=== PATIENT | female | born 1985 | race African-American/Black ===

== ENCOUNTER 2016-09-08 13:17 | Emergency (ER) ==
[2016-09-08 13:56] LABS: MANUAL DIFF NEEDED? NO
[2016-09-08 14:10] LABS: BASO% 0.2 % (0.0-0.8); EOS# 0.02 X1000 (0.0-0.7); EOS% 0.4 % (0.0-10.0); HEMATOCRIT 40.1 % (37.0-47.0); HEMOGLOBIN 13.6 g/dL (12.0-16.0); LYMPH# 1.07 X1000 (1.2-3.4); LYMPH% 20.4 % (20.5-51.1); MCHC 33.9 g/dL (33-37); MCV 79.6 FL (81-99); MONO# 0.51 X1000 (0.11-0.59); MONO% 9.7 % (1.7-9.3); MPV 11.5 FL (7.4-10.4); NEUT% 69.3 % (42.2-75.2); PLT 154 X1000 (130-400); RBC 5.04 XMIL (4.2-5.4)
[2016-09-08 14:20] LABS: AGAP 15; ALBUMIN 3.9 g/dL (3.5-5.0); ALKALINE PHOSPHATASE 77 U/L (32-104); AMYLASE 65 U/L (20-200); BUN 10 mg/dL (8-22); CALCIUM 10.3 mg/dL (8.8-10.2); CHLORIDE 93 mmol/L (98-107); COSMO 280; GOT 20 U/L (10-30); GPT 19 U/L (10-36); LIPASE 19 U/L (13-60); POTASSIUM 4.5 mmol/L (3.5-5.1); SODIUM 133 mmol/L (136-145); TCO2 25 mmol/L (25-35); TOTAL BILIRUBIN 0.32 mg/dL (0.20-1.00); TOTAL PROTEIN 7.9 g/dL (6.3-8.3)
[2016-09-08 14:23] LABS: URINE CULTURE NEEDED? NO; URINE MICRO REVIEW NEEDED? NO; URINE SOURCE CLEAN CATCH
[2016-09-08 14:29] LABS: BILIRUBIN URINE NEGATIVE (NEGATIVE); BLOOD URINE NEGATIVE (NEGATIVE); COLOR STRAW; GLUCOSE URINE >1000 mg/dL (NEGATIVE); LEUKOCYTES URINE NEGATIVE (NEGATIVE); NITRITE URINE NEGATIVE (NEGATIVE); PH URINE 5.5; PROTEIN URINE NEGATIVE (NEGATIVE); SP GRAVITY URINE 1.019; TURBIDITY URINE CLEAR (CLEAR); UROBILINOGEN URINE NORMAL (NORMAL)
[2016-09-08 14:31] LABS: UR EPITHELIAL CELLS <10 /HPF (<10); URINE BACTERIA NEGATIVE /HPF; URINE RBC <10 /HPF (<10); URINE WBC <10 /HPF (<10)
--- NOTE | 2016-09-08 16:14 | PROVIDER DOCUMENTATION ---
HPI-General Adult - General Chief Complaint: Generalized Pain Stated Complaint: NAUSEA/HIGH BP/EYE COMPLAINT Time Seen by Provider: 09/08/16 16:08 Source: patient Allergies/Adverse Reactions: Patient Allergies Allergy/AdvReac Type Severity Reaction Status Date / Time No Known Allergies Allergy Verified 09/08/16 16:45 Home Medications: Home Medication List Medication Instructions Recorded Confirmed Last Taken Type Insulin Glargine [Lantus] 20 unit SUBQ QAM #1 insuln.pen 06/13/16 09/08/1606/13 Rx Insulin Glargine [Lantus] 20 unit SUBQ QHS #1 insuln.pen 06/13/16 09/08/1606/13 Rx Methimazole [Northyx] 20 mg PO QAM #90 tablet 06/13/16 09/08/16 1 Month Ago Rx Metoprolol [Lopressor] 50 mg PO BID #60 tablet 06/13/16 09/08/16 09/08/16 08:00 Rx Bisacodyl [Dulcolax] 10 mg [place] QHS #20 supp 08/03/16 09/08/16 Unknown Rx Cephalexin [Keflex] 500 mg PO BID #14 capsule 08/03/16 09/08/16 Unknown Rx Na Phos,M-B/Na Phos,Di-Ba [Fleet 133 ml NH HS PRN PRN #3 enema 08/03/16 Unknown Rx Enema] Polyethylene Glycol 3350 [Miralax] 255 gm PO DAILY #1 powder 08/03/16 09/08/16 Unknown Rx Clindamycin [Cleocin] 150 mg PO Q6HR #30 capsule 09/08/16 Unknown Rx Docusate Sodium [Colace] 100 mg PO BID PRN PRN #20 capsule 09/08/16 Unknown Rx Insulin Glargine [Lantus] 20 unit SUBQ QAM #1 insuln.pen 09/08/16 Unknown Rx Magnesium Citrate [Citrate of 300 ml PO ONCE #1 bottle 09/08/16 Unknown Rx Magnesia] - History of Present Illness -Gen Adult Nature of Presenting Problems: 31 y/o BF c/o back, head, groin pain, and R eye stye x 2-3 weeks. Pt states that she has been off of her medication x 2-3 weeks- insulin and methamazole. States she still is taking her BP medications. States she ran out of medications and has not had PCP or insurance for 4 years. States that she cannot pay for her medications. States today no N/V/D, but has had intermittent vomiting and diarrhea with dark stools. States polydipsia. Review of Systems - Adult - REVIEW OF SYSTEMS - ADULT Constitutional: reports: no symptoms reported. denies: chills, fever Eyes: reports: see HPI, eye pain. denies: blurred vision, double vision Ears, Nose, Mouth & Throat: reports: no symptoms reported. denies: ear pain, nose pain Cardiovascular: reports: no symptoms reported. denies: chest pain, palpitations Respiratory: reports: no symptoms reported. denies: cough, dyspnea on exertion , shortness of breath Gastrointestinal: reports: see HPI, abdominal pain, diarrhea, nausea, vomiting Genitourinary: reports: see HPI, frequency. denies: dysuria Musculoskeletal: reports: see HPI, back pain, muscle aches. denies: bone pain, neck pain Integumentary: reports: no symptoms reported. denies: nail changes, rash Neurological: reports: no symptoms reported. denies: numbness, paresthesia Psychiatric: reports: no symptoms reported Endocrine: reports: no symptoms reported. denies: cold intolerance, heat intolerance Hematologic/Lymphatic: reports: no symptoms reported Allergic/Immunologic: reports: no symptoms reported All Other Systems: Reviewed and Negative Past History - Adult - PAST MEDICAL HISTORY-ADULT Review of Records: reports: Nursing Assessment Review, Medications Reviewed Major Childhood Illnesses: reports: denies history Cardiovascular: reports: HTN Respiratory: reports: denies history Gastrointestinal: reports: denies history Obstetrical/Gynecological: reports: denies history LMP: 08/13/16 Genitourinary: reports: denies history Musculoskeletal: reports: denies history Neurological: reports: denies history Endocrine/Immune: reports: Diabetes (type 1), thyroid disorder (Graves disease) Other Conditions: reports: denies history - PRIOR SURGERIES/PROCEDURES Surgical/Procedure History: reports: BTL, , hernia repair (inguinal) - IMMUNIZATION STATUS Childhood Immunizations: See Nurse Assessment Flu Vaccine: See Nurse Assessment - FAMILY HISTORY Family History: reviewed, not pertinent - SOCIAL HISTORY Smoking: cigarettes, less than 1 pack/day Provider spent 3-5 mins advising pt. on dangers of tobacco.: Discussed manners to quit use, and f/u contacts for add'l counseling. Alcohol Use Frequency: never Physical Exam-General - PHYSICAL EXAM-ADULT Initial Vital Signs Reviewed: Yes - CONSTITUTIONAL General Appearance: alert, mild distress (tearful) - EYES Eyes: pink conjunctivae - HEAD, EARS, NOSE, MOUTH & THROAT HENMT: normocephalic/atraumatic, moist mucous membranes - NECK Neck: supple, normal inspection - RESPIRATORY Respiratory: lungs clear, normal breath sounds. negative: crackles, rales, rhonchi, stridor, wheezing - CARDIOVASCULAR Cardiovascular: regular rate, rhythm. negative: bradycardia, tachycardia - GASTROINTESTINAL (ABDOMEN) Abdominal Exam: normal bowel sounds, soft, tenderness (LLQ). negative: distended, guarding, rigid, rebound, McBurney's point tenderness, Dale's sign - MUSCULOSKELETAL Back Exam: no CVA tenderness Extremity: normal inspection. negative: abnormal NV exam - SKIN Integumentary: normal color, normal turgor, warm/dry - NEUROLOGIC Neurologic: negative: aphasia - PSYCHIATRIC Psych/Mental Status: normal mood/affect, normal thought content, normal thought process, oriented x 3 Progress - PLAN OF CARE/RESULTS Progress/Plan/Lab Results: Laboratory Tests 09/08/16 09/08/16 09/08/16 13:34 13:48 13:48 WBC RBC Hgb Hct MCV MCH MCHC RDW Std Deviation Plt Count MPV Neut % (Auto) Lymph % (Auto) [place] % (Auto) Eos % (Auto) Baso % (Auto) Neut # (Auto) Lymph # (Auto) [place] # (Auto) Eos # (Auto) Baso # (Auto) Sodium Potassium Chloride Carbon Dioxide Anion Gap BUN Creatinine Estimated GFR/1.73 m2 BUN/Creatinine Ratio Glucose POC Glucose 334 H Calculated Osmolality Calcium Total Bilirubin AST ALT Alkaline Phosphatase Total Protein Albumin Globulin Albumin/Globulin Ratio Amylase Lipase Urine Source CLEAN CATCH Urine Color STRAW Urine Turbidity CLEAR Urine pH 5.5 Ur Specific [place] 1.019 Urine Protein NEGATIVE Ur Glucose (Stick) >1000 A Ur Ketones (Stick) NEGATIVE Urine Blood NEGATIVE Urine Nitrite NEGATIVE Urine Bilirubin NEGATIVE Urobilinogen Dipstick NORMAL Urine Leukocytes NEGATIVE Urine WBC (Auto) <10 Urine RBC (Auto) <10 U Epithel Cells (Auto) <10 Urine Bacteria (Auto) NEGATIVE Urine Test NEGATIVE 09/08/16 09/08/16 13:49 13:49 WBC 5.25 RBC 5.04 Hgb 13.6 Hct 40.1 MCV 79.6 L MCH 27.0 MCHC 33.9 RDW Std Deviation 13.8 Plt Count 154 MPV 11.5 H Neut % (Auto) 69.3 Lymph % (Auto) 20.4 L [place] % (Auto) 9.7 H Eos % (Auto) 0.4 Baso % (Auto) 0.2 Neut # (Auto) 3.64 Lymph # (Auto) 1.07 L [place] # (Auto) 0.51 Eos # (Auto) 0.02 Baso # (Auto) 0.01 Sodium 133 L Potassium 4.5 Chloride 93 L Carbon Dioxide 25 Anion Gap 15 BUN 10 Creatinine 0.5 Estimated GFR/1.73 m2 > 60 BUN/Creatinine Ratio 20 Glucose 352 H POC Glucose Calculated Osmolality 280 Calcium 10.3 H Total Bilirubin 0.32 AST 20 ALT 19 Alkaline Phosphatase 77 Total Protein 7.9 Albumin 3.9 Globulin 4.0 Albumin/Globulin Ratio 1.0 Amylase 65 Lipase 19 Urine Source Urine Color Urine Turbidity Urine pH Ur Specific [place] Urine Protein Ur Glucose (Stick) Ur Ketones (Stick) Urine Blood Urine Nitrite Urine Bilirubin Urobilinogen Dipstick Urine Leukocytes Urine WBC (Auto) Urine RBC (Auto) U Epithel Cells (Auto) Urine Bacteria (Auto) Urine Test Orders Category Date Time Status FSBS [Finger Stick Blood Sugar (ED)] DIRECTED Care 09/08/16 16:47 Active FSBS/Accucheck Result NOW Care 09/08/16 13:56 Active FLAT/UPRIGHT ABD/1 VIEW CHEST [RAD] Stat Exams 09/08/16 16:21 Draft AMYLASE [CHEM] Stat Lab 09/08/16 13:49 Completed CBC WITH ELECTRONIC DIFF [HEME] Stat Lab 09/08/16 13:49 Completed COMPREHENSIVE METABOLIC PANEL [CHEM] Stat Lab 09/08/16 13:49 Completed LIPASE [CHEM] Stat Lab 09/08/16 13:49 Completed TEST-URINE [PREG] Stat Lab 09/08/16 13:48 Completed URINALYSIS W/POSS RFLX CULT [URINALYSIS] Stat Lab 09/08/16 13:48 Completed Clindamycin [Cleocin] Med 09/08/16 16:51 Discontinued 300 mg PO NOW ONE Insulin Human Regular [Humulin R] Med 09/08/16 16:21 Discontinued 8 unit SUBQ NOW ONE Ondansetron Odt [Zofran Odt] Med 09/08/16 16:22 Discontinued 8 mg PO NOW ONE Vital Signs Temp Pulse Resp BP Pulse Ox 09/08/16 17:27 112 H 18 143/66 100 09/08/16 13:46 98.0 F 109 H 20 136/70 100 No Known Allergies Allergy (Verified 09/08/16 16:45) Insulin Glargine [Lantus] 20 unit SUBQ QAM #1 insuln.pen 06/13/16 Insulin Glargine [Lantus] 20 unit SUBQ QHS #1 insuln.pen 06/13/16 Methimazole [Northyx] 20 mg PO QAM #90 tablet 06/13/16 Metoprolol [Lopressor] 50 mg PO BID #60 tablet 06/13/16 Bisacodyl [Dulcolax] 10 mg NH QHS #20 supp 08/03/16 Cephalexin [Keflex] 500 mg PO BID #14 capsule 08/03/16 Na Phos,M-B/Na Phos,Di-Ba [Fleet Enema] 133 ml NH HS PRN PRN #3 enema 08/03/16 Polyethylene Glycol 3350 [Miralax] 255 gm PO DAILY #1 powder 08/03/16 Clindamycin [Cleocin] 150 mg PO Q6HR #30 capsule 09/08/16 Docusate Sodium [Colace] 100 mg PO BID PRN PRN #20 capsule 09/08/16 Insulin Glargine [Lantus] 20 unit SUBQ QAM #1 insuln.pen 09/08/16 Magnesium Citrate [Citrate of Magnesia] 300 ml PO ONCE #1 bottle 09/08/16 Laboratory 09/08/16 09/08/16 09/08/16 13:49 13:49 13:48 WBC 5.25 RBC 5.04 Hgb 13.6 Hct 40.1 MCV 79.6 L MCH 27.0 MCHC 33.9 RDW Std Deviation 13.8 Plt Count 154 MPV 11.5 H Neut % (Auto) 69.3 Lymph % (Auto) 20.4 L [place] % (Auto) 9.7 H Eos % (Auto) 0.4 Baso % (Auto) 0.2 Neut # (Auto) 3.64 Lymph # (Auto) 1.07 L [place] # (Auto) 0.51 Eos # (Auto) 0.02 Baso # (Auto) 0.01 Sodium 133 L Potassium 4.5 Chloride 93 L Carbon Dioxide 25 Anion Gap 15 BUN 10 Creatinine 0.5 Estimated GFR/1.73 m2 > 60 BUN/Creatinine Ratio 20 Glucose 352 H POC Glucose Calculated Osmolality 280 Calcium 10.3 H Total Bilirubin 0.32 AST 20 ALT 19 Alkaline Phosphatase 77 Total Protein 7.9 Albumin 3.9 Globulin 4.0 Albumin/Globulin Ratio 1.0 Amylase 65 Lipase 19 Urine Source CLEAN CATCH Urine Color STRAW Urine Turbidity CLEAR Urine pH 5.5 Ur Specific [place] 1.019 Urine Protein NEGATIVE Ur Glucose (Stick) >1000 A Ur Ketones (Stick) NEGATIVE Urine Blood NEGATIVE Urine Nitrite NEGATIVE Urine Bilirubin NEGATIVE Urobilinogen Dipstick NORMAL Urine Leukocytes NEGATIVE Urine WBC (Auto) <10 Urine RBC (Auto) <10 U Epithel Cells (Auto) <10 Urine Bacteria (Auto) NEGATIVE Urine Test 09/08/16 09/08/16 13:48 13:34 WBC RBC Hgb Hct MCV MCH MCHC RDW Std Deviation Plt Count MPV Neut % (Auto) Lymph % (Auto) [place] % (Auto) Eos % (Auto) Baso % (Auto) Neut # (Auto) Lymph # (Auto) [place] # (Auto) Eos # (Auto) Baso # (Auto) Sodium Potassium Chloride Carbon Dioxide Anion Gap BUN Creatinine Estimated GFR/1.73 m2 BUN/Creatinine Ratio Glucose POC Glucose 334 H Calculated Osmolality Calcium Total Bilirubin AST ALT Alkaline Phosphatase Total Protein Albumin Globulin Albumin/Globulin Ratio Amylase Lipase Urine Source Urine Color Urine Turbidity Urine pH Ur Specific [place] Urine Protein Ur Glucose (Stick) Ur Ketones (Stick) Urine Blood Urine Nitrite Urine Bilirubin Urobilinogen Dipstick Urine Leukocytes Urine WBC (Auto) Urine RBC (Auto) U Epithel Cells (Auto) Urine Bacteria (Auto) Urine Test NEGATIVE Discussed results and f/u with pt, including return precautions. - XRAY 1 XRAY Study: Chest, Abdomen XRAY Interpretation: constipation Departure - Departure Time of Disposition Order: 16:48 DIAGNOSIS: Hyperglycemia Constipation Qualifiers: Constipation type: unspecified constipation type Qualified Code(s): K59.00 - Constipation, unspecified Stye Qualifiers: Laterality: right Eyelid: lower Qualified Code(s): H00.012 - Hordeolum externum right lower eyelid Disposition: HOME 01 Certified Medical Emergency: Emergent Condition: Stable Additional Instructions: Drink plenty of fluids. Take medications as directed. Warm compresses to R eye to allow drainage. Follow up with clinic for further management. ED Follow Up Instructions: You have been treated by a care provider in the Emergency Department. These instructions are being provided to you so you can have an understanding of how to care for yourself upon discharge. Upon discharge from the Emergency Department, you are responsible for making arrangements for follow-up care by a physician of your choice. Take all prescribed medications as directed. Return to the Emergency Department immediately for any new or worsening symptoms. You may call the Physician Referral phone number at [phone] to obtain a list of Physicians who are taking new patients. Prescriptions: Magnesium Citrate [Citrate of Magnesia] 300 ml PO ONCE #1 bottle Clindamycin [Cleocin] 150 mg PO Q6HR #30 capsule Docusate Sodium [Colace] 100 mg PO BID PRN PRN #20 capsule PRN Reason: Constipation Insulin Glargine [Lantus] 20 unit SUBQ QAM #1 insuln.pen Referrals: None,PCP [Primary Care Provider] - [facility] [NON-STAFF] - Forms: Return to School/Parent Work Instructions: Stye, Constipation, Adult, Hyperglycemia, [id number] Attestation - Physician/ MARIANA Attestation Patient care was provided by Advanced Practice Provider:: Yes Advanced Practice Provider:: Ruchi Gomez Advanced Practice Provider documentation review:: The Mid-level provider documentation, treatment plan and medical decision making was reviewed by the physician who agrees with all treatment and medical decision making by the MLP.
[2016-09-08] MEDS ORDERED: HUMULIN R SUBQ ONE (16:21)
[2016-09-08] MEDS ORDERED: ZOFRAN ODT PO ONE (16:22)
[2016-09-08] MEDS ORDERED: CLEOCIN PO ONE (16:51)
[2016-09-08 17:29] VITALS: BP 143/66
--- NOTE | 2016-09-08 18:31 | Diag Imaging Result Document ---
PROCEDURE NAME: FLAT/UPRIGHT ABD/1 VIEW CHEST - 09/08/2016 ABDOMINAL SERIES: FINDINGS: Compared with 08/03/2016. The bowel gas pattern appears nonspecific and nonobstructive. There is retained fecal debris in the colon, although this appears to have decreased. There is no free air identified. Upright chest shows normal heart size. There is apparent mild scarring along the right minor fissure. The remainder of the lungs appear clear. There is no pleural effusion or pneumothorax identified. IMPRESSION: 1. Nonspecific bowel gas pattern. 2. Mild constipation, some improvement compared to prior. 3. Mild scarring along the right minor fissure. 4. No evidence of acute cardiopulmonary disease.
== END 2016-09-08 17:56 | disposition home or self-care (01) ==
LOC: ED 13:17
DX: E10.65 Type 1 diabetes mellitus with hyperglycemia (principal); K59.00 Constipation, unspecified; H00.012 Hordeolum externum right lower eyelid; M54.9 Dorsalgia, unspecified; R51 Headache; R10.30 Lower abdominal pain, unspecified; R11.2 Nausea with vomiting, unspecified; R19.7 Diarrhea, unspecified; R19.5 Other fecal abnormalities; R63.1 Polydipsia; H57.11 Ocular pain, right eye; R10.9 Unspecified abdominal pain; R35.0 Frequency of micturition; M79.1 Myalgia; R10.814 Left lower quadrant abdominal tenderness; I10 Essential (primary) hypertension; E05.00 Thyrotoxicosis with diffuse goiter without thyrotoxic crisis or storm; F17.210 Nicotine dependence, cigarettes, uncomplicated; Z79.4 Long term (current) use of insulin; Z79.899 Other long term (current) drug therapy; Z71.6 Tobacco abuse counseling
CPT/HCPCS: 74022; 80053; 81001; 81025; 82150; 82948; 83690; 85025

== ENCOUNTER 2016-09-13 11:57 | Emergency (ER) ==
[2016-09-13 12:13] VITALS: BP 126/77
[2016-09-13 14:11] LABS: BASO% 0.6 % (0.0-0.8); EOS# 0.07 X1000 (0.0-0.7); EOS% 0.9 % (0.0-10.0); HEMOGLOBIN 13.6 g/dL (12.0-16.0); IMM GRAN# 0.02 X1000 (0.0-0.04); IMM GRAN% 0.2 % (0.0-0.5); LYMPH# 1.95 X1000 (1.2-3.4); LYMPH% 23.9 % (20.5-51.1); MANUAL DIFF NEEDED? YES; MCV 76.5 FL (81-99); MONO# 0.73 X1000 (0.11-0.59); MPV 11.4 FL (7.4-10.4); NEUT% 65.4 % (42.2-75.2); PLT 207 X1000 (130-400); RBC 5.23 XMIL (4.2-5.4)
[2016-09-13] MEDS ORDERED: ROCEPHIN IM ONE (14:16)
[2016-09-13] MEDS ORDERED: XYLOCAINE-MPF 1% INJ ONE (14:16)
[2016-09-13 14:22] LABS: AGAP 13; ALBUMIN 3.6 g/dL (3.5-5.0); ALKALINE PHOSPHATASE 91 U/L (32-104); BUN 8 mg/dL (8-22); CALCIUM 8.3 mg/dL (8.8-10.2); CHLORIDE 94 mmol/L (98-107); COSMO 275; GOT 16 U/L (10-30); GPT 14 U/L (10-36); POTASSIUM 3.6 mmol/L (3.5-5.1); SODIUM 132 mmol/L (136-145); TCO2 24 mmol/L (25-35); TOTAL PROTEIN 7.6 g/dL (6.3-8.3)
--- NOTE | 2016-09-13 14:26 | PROVIDER DOCUMENTATION ---
HPI-Rash/Wound/ReCheck - General Chief Complaint: Sores/Lesions Stated Complaint: DIABETIC/SORE ON FOOT Time Seen by Provider: 09/13/16 13:41 Source: patient Allergies/Adverse Reactions: Allergies Allergy/AdvReac Type Severity Reaction Status Date / Time No Known Allergies Allergy Verified 09/08/16 16:45 Home Medications: Home Medication List Medication Instructions Recorded Confirmed Last Taken Type Insulin Glargine [Lantus] 20 unit SUBQ QAM #1 insuln.pen 06/13/16 09/08/1606/13 Rx Insulin Glargine [Lantus] 20 unit SUBQ QHS #1 insuln.pen 06/13/16 09/08/1606/13 Rx Methimazole [Northyx] 20 mg PO QAM #90 tablet 06/13/16 09/08/16 1 Month Ago Rx Metoprolol [Lopressor] 50 mg PO BID #60 tablet 06/13/16 09/08/16 09/08/16 08:00 Rx Bisacodyl [Dulcolax] 10 mg AL QHS #20 supp 08/03/16 09/08/16 Unknown Rx Cephalexin [Keflex] 500 mg PO BID #14 capsule 08/03/16 09/08/16 Unknown Rx Na Phos,M-B/Na Phos,Di-Ba [Fleet 133 ml AL HS PRN PRN #3 enema 08/03/16 Unknown Rx Enema] Polyethylene Glycol 3350 [Miralax] 255 gm PO DAILY #1 powder 08/03/16 09/08/16 Unknown Rx Clindamycin [Cleocin] 150 mg PO Q6HR #30 capsule 09/08/16 Unknown Rx Docusate Sodium [Colace] 100 mg PO BID PRN PRN #20 capsule 09/08/16 Unknown Rx Insulin Glargine [Lantus] 20 unit SUBQ QAM #1 insuln.pen 09/08/16 Unknown Rx Magnesium Citrate [Citrate of 300 ml PO ONCE #1 bottle 09/08/16 Unknown Rx Magnesia] - History of Present Illness-Dermatology Nature of Presenting Problem: Patient is a 31 y/o F that presents with diabetic sore to left foot. patient noticed it 4 days ago. She was seen at [facility] 6 days ago and given rx for insulin in which she was out for 2 to 3 weeks. She reports not being able to afford the meds Location: reports: feet (left foot) Quality: reports: painful Severity: reports: moderate Onset/Duration: reports: gradual, 4 days ago, 5 days ago Timing: reports: still present, intermittent Context/Associated Symptoms: reports: other (ulcer). denies: burn, blisters, fever, flushing, lesion Identifiable cause?: Yes (non compliance of diabetes) Locality of [place]: Home Similar Symptoms Previously?: Yes Recently seen or treated by another doctor?: Yes Review of Systems - Adult - REVIEW OF SYSTEMS - ADULT Constitutional: denies: chills, fever Eyes: reports: no symptoms reported Ears, Nose, Mouth & Throat: reports: no symptoms reported Cardiovascular: denies: chest pain, edema, palpitations, syncope Respiratory: denies: cough, shortness of breath Gastrointestinal: denies: abdominal pain, diarrhea, nausea, vomiting Genitourinary: reports: no symptoms reported Musculoskeletal: reports: no symptoms reported Integumentary: reports: skin sores/ulcer. denies: itching, rash Neurological: reports: no symptoms reported Psychiatric: reports: no symptoms reported Endocrine: reports: no symptoms reported Hematologic/Lymphatic: reports: no symptoms reported Allergic/Immunologic: reports: no symptoms reported All Other Systems: Reviewed and Negative Past History - Adult - PAST MEDICAL HISTORY-ADULT Review of Records: reports: Old Records Reviewed, Nursing Assessment Review, Medications Reviewed Cardiovascular: reports: HTN Endocrine/Immune: reports: Diabetes (type 1), thyroid disorder (Graves disease) - PRIOR SURGERIES/PROCEDURES Surgical/Procedure History: reports: BTL, , hernia repair (inguinal) - IMMUNIZATION STATUS Childhood Immunizations: See Nurse Assessment Flu Vaccine: See Nurse Assessment - FAMILY HISTORY Family History: reviewed, not pertinent - SOCIAL HISTORY Smoking: cigarettes, less than 1 pack/day Substance Use: marijuana Living Situation: family Physical Exam-General - PHYSICAL EXAM-ADULT Initial Vital Signs Reviewed: Yes - CONSTITUTIONAL General Appearance: alert, no apparent distress - EYES Eyes: PERRL/EOMI, pink conjunctivae - HEAD, EARS, NOSE, MOUTH & THROAT HENMT: normocephalic/atraumatic, moist mucous membranes, normal ENT inspection - NECK Neck: full range of motion, normal inspection - RESPIRATORY Respiratory: lungs clear, normal breath sounds, no respiratory distress, no accessory muscle use - CARDIOVASCULAR Cardiovascular: regular rate, rhythm, no edema, no murmur - GASTROINTESTINAL (ABDOMEN) Abdominal Exam: normal bowel sounds, non tender, soft - MUSCULOSKELETAL Extremity: no calf tenderness, normal capillary refill, pelvis stable - SKIN Integumentary: swelling (left foot), other (diabetic ulcer left foot, foul smell ) - NEUROLOGIC Neurologic: grossly normal, no motor/sensory deficits - PSYCHIATRIC Psych/Mental Status: normal mood/affect, normal thought content, normal thought process, oriented x 3 Progress - PLAN OF CARE/RESULTS Progress/Plan/Lab Results: plan of care-meds, labs, xray Vital Signs Temp Pulse Resp BP Pulse Ox 09/13/16 12:08 98.7 F 113 H 18 126/77 100 No Known Allergies Allergy (Verified 09/08/16 16:45) Insulin Glargine [Lantus] 20 unit SUBQ QAM #1 insuln.pen 06/13/16 Insulin Glargine [Lantus] 20 unit SUBQ QHS #1 insuln.pen 06/13/16 Methimazole [Northyx] 20 mg PO QAM #90 tablet 06/13/16 Metoprolol [Lopressor] 50 mg PO BID #60 tablet 06/13/16 Bisacodyl [Dulcolax] 10 mg AL QHS #20 supp 08/03/16 Cephalexin [Keflex] 500 mg PO BID #14 capsule 08/03/16 Na Phos,M-B/Na Phos,Di-Ba [Fleet Enema] 133 ml AL HS PRN PRN #3 enema 08/03/16 Polyethylene Glycol 3350 [Miralax] 255 gm PO DAILY #1 powder 08/03/16 Clindamycin [Cleocin] 150 mg PO Q6HR #30 capsule 09/08/16 Docusate Sodium [Colace] 100 mg PO BID PRN PRN #20 capsule 09/08/16 Insulin Glargine [Lantus] 20 unit SUBQ QAM #1 insuln.pen 09/08/16 Magnesium Citrate [Citrate of Magnesia] 300 ml PO ONCE #1 bottle 09/08/16 Laboratory 09/13/16 09/13/16 14:03 14:03 WBC 8.15 RBC 5.23 Hgb 13.6 Hct 40.0 MCV 76.5 L MCH 26.0 L MCHC 34.0 RDW Std Deviation 12.9 Plt Count 207 MPV 11.4 H Immature Gran % (Auto) 0.2 Neut % (Auto) 65.4 Lymph % (Auto) 23.9 [place] % (Auto) 9.0 Eos % (Auto) 0.9 Baso % (Auto) 0.6 Immature Gran # (Auto) 0.02 Neut # (Auto) 5.33 Lymph # (Auto) 1.95 [place] # (Auto) 0.73 H Eos # (Auto) 0.07 Baso # (Auto) 0.05 Segmented Neutrophils 56 Lymphocytes 32 Monocytes 8 Atypical Lymphocytes 4.0 Sodium 132 L Potassium 3.6 Chloride 94 L Carbon Dioxide 24 L Anion Gap 13 BUN 8 Creatinine 0.3 L Estimated GFR/1.73 m2 > 60 BUN/Creatinine Ratio 27 Glucose 313 H Calculated Osmolality 275 Calcium 8.3 L Total Bilirubin 0.40 AST 16 ALT 14 Alkaline Phosphatase 91 Total Protein 7.6 Albumin 3.6 Globulin 4.0 Albumin/Globulin Ratio 1.0 Orders Category Date Time Status Wound Care DIRECTED Care 09/13/16 14:17 Active FOOT COMPLETE LEFT [RAD] Stat Exams 09/13/16 14:16 Draft CBC WITH DIFF [HEME] Stat Lab 09/13/16 14:03 Completed COMPREHENSIVE METABOLIC PANEL [CHEM] Stat Lab 09/13/16 14:03 Completed CefTRIAXONE [Rocephin] Med 09/13/16 14:16 Discontinued 1 gm IM NOW ONE Lidocaine 1% Pf [Xylocaine-Mpf 1%] Med 09/13/16 14:16 Discontinued 5 ml INJ NOW ONE pt will be d/c home with rx, f/u with wound care clinic. pt was clinically stable, understood results and instructions. - XRAY 1 XRAY: Left XRAY Study: Foot Impression: Normal XRAY Interpretation: nad Departure - Departure Time of Disposition Order: 15:28 DIAGNOSIS: Diabetic foot, Poorly controlled diabetes mellitus Disposition: HOME 01 Certified Medical Emergency: Emergent Condition: Stable Additional Instructions: follow up with wound care clinic ED Follow Up Instructions: You have been treated by a care provider in the Emergency Department. These instructions are being provided to you so you can have an understanding of how to care for yourself upon discharge. Upon discharge from the Emergency Department, you are responsible for making arrangements for follow-up care by a physician of your choice. Take all prescribed medications as directed. Return to the Emergency Department immediately for any new or worsening symptoms. You may call the Physician Referral phone number at [phone] to obtain a list of Physicians who are taking new patients. Referrals: [facility] [Primary Care Provider] - Antonio Chaney MD [STAFF PHYSICIAN] - (call as needed) Instructions: Diabetes and Foot Care Attestation - Scribe Verification/Attestation Scribe:: Aiden Fisher Acting as Scribe for:: Je Chauhan Scribe documention review:: This chart was documented by a scribe and accurately reflects the service the provider performed and the decisions made by the provider. Physician Attestation - Physician Attestation I, the provider, attest to the following statement:: Je Chauhan Physician documentation Attestation:: This documentation recorded by the scribe accurately reflects the service I personally performed and the decisions made by me.
[2016-09-13 14:34] LABS: LYMPHS 32 % (21-51); MONO 8 % (1-9)
--- NOTE | 2016-09-13 14:51 | Diag Imaging Result Document ---
PROCEDURE NAME: FOOT COMPLETE LEFT - 09/13/2016 PLAIN RADIOGRAPH THE LEFT FOOT 3 VIEWS: COMPARISON: None available. FINDINGS: There is no discrete fracture, dislocation, or intrinsic osseous lesion identified. No focal bony erosion is identified to indicate osteomyelitis. Surrounding soft tissues are grossly unremarkable by plain radiograph. IMPRESSION: No evidence of acute osseous abnormality.
== END 2016-09-13 15:52 | disposition home or self-care (01) ==
LOC: P.ED 11:57
DX: E10.621 Type 1 diabetes mellitus with foot ulcer (principal); L97.529 Non-pressure chronic ulcer of other part of left foot with unspecified severity; E10.65 Type 1 diabetes mellitus with hyperglycemia; M79.672 Pain in left foot; R22.42 Localized swelling, mass and lump, left lower limb; I10 Essential (primary) hypertension; E10.9 Type 1 diabetes mellitus without complications; E07.9 Disorder of thyroid, unspecified; Z79.4 Long term (current) use of insulin; F17.210 Nicotine dependence, cigarettes, uncomplicated
CPT/HCPCS: 36415; 80053; 82948; 85025; 96372; J0696

== ENCOUNTER 2016-10-19 11:15 | Inpatient (IN) ==
--- NOTE | 2016-10-19 11:52 | ED EKG INTERP ---
This chart was entered by Kimberley Espinoza Scribe, acting as scribe for Richie Cintron MD. EKG Interpretation - EKG Time of EKG reading by physician:: 11:35 EKG Read and Signed by:: Richie Cintron EKG Interpretation (*Must complete 3 of following elements*): Abnormal Rate: 134 Rhythm: sinus tachycardia Comments: nonspecific T wave abnormality This chart was documented by the indicated scribe, (Kimberley Espinoza Scribe) and accurately reflects the services I performed and decisions made by me, Richie Cintron MD, as attested by the provider's signature.
[2016-10-19] MEDS ORDERED: NS 1,000 ML IV ONE ×3 (12:06→16:07)
[2016-10-19] MEDS ORDERED: NS 2,000 ML ONE (12:10)
[2016-10-19 12:19] LABS: MANUAL DIFF NEEDED? NO
[2016-10-19 12:21] LABS: EOS# 0.01 X1000 (0.0-0.7); EOS% 0.1 % (0.0-10.0); HEMATOCRIT 39.1 % (37.0-47.0); HEMOGLOBIN 13.6 g/dL (12.0-16.0); IMM GRAN# 0.02 X1000 (0.0-0.04); IMM GRAN% 0.3 % (0.0-0.5); LYMPH# 0.95 X1000 (1.2-3.4); LYMPH% 13.5 % (20.5-51.1); MCH 26.5 PG (27-31); MCHC 34.8 g/dL (33-37); MCV 76.2 FL (81-99); MONO% 8.5 % (1.7-9.3); MPV 12.6 FL (7.4-10.4); NEUT% 77.6 % (42.2-75.2); PLT 271 X1000 (130-400); RBC 5.13 XMIL (4.2-5.4)
[2016-10-19 12:57] LABS: BE 4.1 mmoll (-3.0-3.0); BLOOD TYPE ARTERIAL; DRAW SITE L RADIAL; METHB 1.2 % (0.0-1.5); O2(CT) 18.5 mL/dL (15.0-23.0); PCO2(98.6) 36 mmHg (35-45); PO2(98.6) 94 mmHg (60-100); SAMPLE BLOOD; SAO2 98.4 % (95.0-100.0); THB 13.8 g/dL (11.5-17.4); pH(98.6) 7.49 (7.35-7.45)
[2016-10-19 13:07] LABS: BILIRUBIN URINE NEGATIVE (NEGATIVE); BLOOD URINE 2+ (NEGATIVE); CLARITY CLEAR (CLEAR); COLOR YELLOW; LEUKOCYTES URINE NEGATIVE (NEGATIVE); NITRITE URINE NEGATIVE (NEGATIVE); PROTEIN URINE 2+(100 mg/dL) mg/dL (NEGATIVE); SP GRAVITY URINE 1.015; URINE CULTURE PL NEEDED? YES; URINE EPITHELIAL CELLS >10 /HPF (<10); URINE SOURCE VOIDED; UROBILINOGEN URINE NORMAL
[2016-10-19 13:40] LABS: AGAP 18; ALBUMIN 3.9 g/dL (3.5-5.0); ALKALINE PHOSPHATASE 75 U/L (32-104); BUN 13 mg/dL (8-22); CALCIUM 8.9 mg/dL (8.8-10.2); CHLORIDE 90 mmol/L (98-107); COSMO 278; GOT 16 U/L (10-30); GPT 14 U/L (10-36); POTASSIUM 3.3 mmol/L (3.5-5.1); SODIUM 133 mmol/L (136-145); TCO2 25 mmol/L (25-35); TOTAL PROTEIN 7.4 g/dL (6.3-8.3)
[2016-10-19 14:59] LABS: MODALITY ROOM AIR
[2016-10-19 15:00] LABS: ALLEN TEST YES
[2016-10-19] MEDS ORDERED: ZOFRAN IV ONE (15:32)
[2016-10-19] MEDS ORDERED: ZOFRAN ONE (15:33)
[2016-10-19] MEDS ORDERED: LOPRESSOR PO ONE (15:38)
--- NOTE | 2016-10-19 17:54 | EKG Report ---
Test Performed on : 10/19/2016 11:35:45 AM Test Reason : hr 145 Blood Pressure : / mmHG Vent. Rate : 134 BPM Atrial Rate : 134 BPM P-R Int : 128 ms QRS Dur : 072 ms QT Int : 382 ms P-R-T Axes : 072 020 071 degrees QTc Int : 570 ms Sinus tachycardia. Nonspecific T wave abnormality Abnormal ECG When compared with ECG of 13-JUN-2016 08:53, Nonspecific T wave abnormality no longer evident in Inferior leads Unconfirmed Result
[2016-10-19] MEDS ORDERED: MIRALAX PO PRN (19:37)
[2016-10-19] MEDS ORDERED: COLACE PO PRN (19:37)
[2016-10-19] MEDS ORDERED: CITRATE OF MAGNESIA PO ONE (19:45)
[2016-10-19] MEDS ORDERED: ZOFRAN IV PRN (20:53)
[2016-10-19] MEDS ORDERED: TYLENOL PO PRN (20:53)
[2016-10-19] MEDS ORDERED: ROCEPHIN 1 GM/NS 1 GM/50 ML IVPB IV SCH (21:00)
[2016-10-20] MEDS: TAPAZOLE PO SCH ×4 (00:34→16:52)
[2016-10-20] MEDS: TOPROL XL PO SCH ×3 (00:34→20:50)
[2016-10-20] MEDS: LOPRESSOR PO SCH ×3 (00:39→20:50)
[2016-10-20] MEDS: LANTUS INSULIN (PARKWAY) SUBQ SCH ×3 (00:40→20:50)
[2016-10-20] MEDS ORDERED: CITRATE OF MAGNESIA PO ONE (00:45)
[2016-10-20 06:22] LABS: HEMATOCRIT 33.1 % (37.0-47.0); HEMOGLOBIN 11.2 g/dL (12.0-16.0); MCHC 33.8 g/dL (33-37); MCV 76.8 FL (81-99); MPV 11.7 FL (7.4-10.4); RBC 4.31 XMIL (4.2-5.4)
[2016-10-20 06:39] LABS: AGAP 15; ALBUMIN 3.3 g/dL (3.5-5.0); ALKALINE PHOSPHATASE 61 U/L (32-104); BUN 11 mg/dL (8-22); CALCIUM 8.1 mg/dL (8.8-10.2); CHLORIDE 97 mmol/L (98-107); COSMO 272; GOT 21 U/L (10-30); GPT 13 U/L (10-36); MAGNESIUM 1.7 mg/dL (1.5-2.7); POTASSIUM 2.9 mmol/L (3.5-5.1); SODIUM 136 mmol/L (136-145); TCO2 25 mmol/L (25-35); TOTAL PROTEIN 6.8 g/dL (6.3-8.3)
[2016-10-20 06:41] LABS: FREE T4 7.77 ng/dL (0.93-1.70)
[2016-10-20] MEDS ORDERED: KLOR-CON PO ONE ×2 (09:00→10:15)
--- NOTE | 2016-10-20 11:54 | HISTORY AND PHYSICAL ---
CHIEF COMPLAINT: Nausea and vomiting. HISTORY OF PRESENT ILLNESS: The patient is a 31-year-old female who notes that she has not been taking her methimazole secondary to expense. She states that this costs 75 dollars a month and she does not have insurance. She has, however, been taking her insulin. She stated that over the past couple of days she has had increased nausea and vomiting, increased abdominal pain, increased generalized weakness, and therefore she finally decided to come to the emergency department. MEDICATIONS: Lantus 20 once in the a.m., Lantus 20 units at bedtime, methimazole 20 q.a.m., Lopressor 50 b.i.d., Dulcolax 10 at bedtime, MiraLAX, Colace, and she has recently been on Bactrim for a foot infection, but notes this has healed. ALLERGIES: No known drug allergies. REVIEW OF SYSTEMS: As noted above. States that she has been having palpitations and shortness of breath. Denies any chest pain. Denies headaches, blurred vision, change in vision. Denies any focalized numbness, tingling, or weakness in her extremities. Denies any GI or issues otherwise. PAST MEDICAL HISTORY: Hypertension, diabetes type 1, Graves disease. Unfortunate medical noncompliance secondary to being unable to afford medications at home. FAMILY HISTORY: Noncontributory. SOCIAL HISTORY: Patient continues to smoke, she says less than a pack a day. Does not drink or use other substances other than frequent marijuana. PHYSICAL EXAMINATION: Temperature 98.0 degrees, pulse 140, respiratory rate 20, blood pressure 173/100, saturation 100% on room air. GENERAL: The patient is awake, alert, oriented. She is currently in no respiratory distress. She is lying in the bed, pleasant to talk with. HEENT: Normocephalic, atraumatic. NECK: Supple. CARDIOVASCULAR: Regular rate; however, she was tachycardic when she arrived to the ER. CHEST: Relatively clear. ABDOMEN: Soft. EXTREMITIES: Moves all extremities. NEUROLOGIC: No changes. LABORATORIES: CBC normal. CMP with a potassium of 3.3, sodium 133, glucose of 308. TSH 0.2, free T4 of 7.7. UA with large ketones and 3+ glucose. ASSESSMENT: 1. Graves disease with uncontrolled hyperthyroidism secondary to not taking her medications appropriately. 2. Dehydration secondary to her nausea and vomiting. 3. Hyponatremia. 4. Hypokalemia. 5. Diabetes with hyperglycemia. PLAN: We will admit patient to the hospital, restart her methimazole, place her on IV fluids, encourage p.o., and use Zofran as needed. Further orders as needed. cc: Thien Reynolds MD
--- NOTE | 2016-10-20 17:06 | Diag Imaging Result Document ---
PROCEDURE NAME: US SOFT TISSUE HEAD NECK - 10/20/2016 THYROID ULTRASOUND: FINDINGS: The right lobe of the thyroid measures 5.6 x 2.9 x 2.1 cm. Slight heterogeneity to the echotexture. Questionable isoechoic nodules within it. The left lobe of the thyroid measures 5.2 x 2.6 x 1.8 cm. There is a slight heterogeneity to the echotexture. Questionable subtle isoechoic nodule inferiorly. No other abnormality. IMPRESSION: Prominent heterogeneous thyroid with questionable isoechoic nodule.
[2016-10-20] MEDS ORDERED: CIPRO PO SCH (21:00)
[2016-10-21 00:34] VITALS: BP 151/80
[2016-10-21] MEDS ORDERED: KEFLEX PO SCH (09:00)
[2016-10-21] MEDS: TOPROL XL PO SCH (09:06)
[2016-10-21] MEDS: LOPRESSOR PO SCH (09:06)
[2016-10-21] MEDS ORDERED: KLOR-CON PO SCH (09:15)
[2016-10-21 10:54] LABS: AGAP 16; BUN 9 mg/dL (8-22); CALCIUM 8.5 mg/dL (8.8-10.2); CHLORIDE 98 mmol/L (98-107); COSMO 272; POTASSIUM 3.5 mmol/L (3.5-5.1); SODIUM 135 mmol/L (136-145); TCO2 21 mmol/L (25-35)
[2016-10-21 11:31] LABS: FREE T4 7.38 ng/dL (0.93-1.70)
[2016-10-21] MEDS: LANTUS INSULIN (PARKWAY) SUBQ SCH (15:31)
--- NOTE | 2016-10-22 04:52 | DISCHARGE SUMMARY ---
ADMISSION DATE: 10/19/2016 DISCHARGE DATE: 10/21/2016 DISCHARGE DIAGNOSES: 1. Escherichia coli urinary tract infection sensitive to Bactrim. We will use Bactrim as it is free at [facility]. 2. Graves disease. Thyroid ultrasound was essentially normal. The patient has a history of noncompliance with her methimazole secondary to cost. We did print off a medication card that should decrease the cost. 3. Hyponatremia, resolved. Sodium 133 admit, 135 discharge. 4. Hypokalemia. Potassium 2.9, currently 3.5 and stable. 5. Hyperglycemia with diabetes type 1. Patient is currently on Lantus. We will continue this on her home dose. Her blood sugars have been 111-160 in the hospital. 6. Mild hypocalcemia. Discussed with patient that she certainly needs to take calcium at home. BRIEF HOSPITAL COURSE: Patient is a 31-year-old female, who unfortunately has been noncompliant with her medications at home secondary to cost. However, there is some question as to drug use. She does apparently have a urine drug screen in the past, documented in the hospital and positive for cocaine. Discussed her that smoking and drinking is not in her best interest and that she certainly should conserve her money to buy her medications given that thyroid disease can create significant problems in the future. The patient thankfully had an uneventful hospital course. DISPOSITION: She will be discharged home. We will continue Bactrim, although there is some question as to whether she has recently been on the Bactrim. Is free at [facility] and her Escherichia coli urinary tract infection is highly sensitive to this. We will continue her Tapazole at 10 mg 3 times a day for the next 2 days and then decrease back to her baseline of 20 mg once a day. No other changes made on her chronic medications. She will continue Lantus. TIME SPENT: Thirty-five minutes was spent in discharge planning and instructions. cc: Thien Reynolds MD
--- NOTE | 2016-10-22 04:56 | PROGRESS NOTE ---
DATE: 10/20/2016 SUBJECTIVE: The patient notes that she is feeling a little bit better this morning. She has not been retching. She notes that she is eager to try to drink and eat this morning. OBJECTIVE: HEENT: Normocephalic, atraumatic. Neck: Supple. CV: Regular rate. Chest: Relatively clear. Abdomen: Soft. Extremities: Moves all extremities. Vital signs: Reviewed. Temp 97, pulse 94, respiratory rate 20, BP 146/67, satting 90% on room air. LABS: CBC normal. Potassium 2.9. Glucose improved at 111. TSH 0.01. Free T4 of 7.7. ASSESSMENT: 1. Graves disease. Will continue her methimazole. Hopefully, she can be discharged home later this afternoon if she starts to feel better. 2. Diabetes, insulin requiring, with hyperglycemia, improving. 3. Questionable urinary tract infection, started her on Rocephin. Will transition her over to Bactrim on discharge. 4. Hyponatremia. Will replace. PLAN: Will continue her current medications. Will attempt to get a thyroid ultrasound. Will increase her methimazole to 20 mg three times a day today and slowly decrease from there as she becomes more euthyroid. cc: Thien Reynolds MD
--- NOTE | 2016-10-25 02:17 | PROVIDER DOCUMENTATION ---
This chart was entered by Kimberley Epsinoza Scribe, acting as scribe for Richie Cintron MD. HPI-General Adult - General Chief Complaint: Nausea Stated Complaint: VOMITING Time Seen by Provider: 10/19/16 12:05 Source: patient Allergies/Adverse Reactions: Patient Allergies Allergy/AdvReac Type Severity Reaction Status Date / Time No Known Allergies Allergy Verified 10/19/16 11:37 Home Medications: Home Medication List Medication Instructions Recorded Confirmed Last Taken Type Insulin Glargine [Lantus] 20 unit SUBQ QHS #1 insuln.pen 06/13/16 10/19/1610/18 Rx Docusate Sodium [Colace] 100 mg PO BID PRN PRN #20 capsule 09/08/16 10/19/16 Rx Magnesium Citrate [Citrate of 300 ml PO ONCE #1 bottle 09/08/16 10/19/16 Rx Magnesia] Bisacodyl [Dulcolax] 10 mg LA QHS PRN 10/19/16 10/19/16 Unknown History Polyethylene Glycol 3350 [Miralax] 255 gm PO DAILY PRN 10/19/16 10/19/16 Unknown History Insulin Glargine [Lantus] 20 unit SUBQ QAM #3 insuln.pen 10/21/16 Unknown Rx Methimazole [Northyx] 20 mg PO QAM #90 tablet 10/21/16 Unknown Rx Metoprolol [Lopressor] 50 mg PO BID #60 tablet 10/21/16 Unknown Rx Sulfamethoxazole/Trimethoprim 1 each PO BID #20 tablet 10/21/16 Unknown Rx [Bactrim Ds Tablet] - History of Present Illness -Gen Adult Nature of Presenting Problems: Pt is 31 y/o F presents to the ED with N/V/D. Pt states she has not taken her meds in a few days. Pt denies F. Location of Pain/Injury: reports: generalized Pain Radiation: reports: no radiation Quality of Pain: reports: aching Severity: reports: mild Onset/Duration: reports: 24 hours ago Timing: reports: still present Context/Activities at Onset: reports: light activity Modifying Factors: improves with: nothing Associated Symptoms: reports: diarrhea, nausea, vomiting. denies: anxiety, arm pain, back/neck pain, chest pain, constipation, cough, diaphoresis, dizziness, EENT symptoms, fatigue, fever/chills, genitourinary problems, headaches, heartburn, joint pain, loss of appetite, malaise, muscle aches, sinus congestion /drainage, rash, seizure, shortness of breath, sensory/motor loss, pain with inspiration, swelling/mass in abdomen, syncope, weakness, trouble walking Similar Symptoms Previously?: Yes Recently seen or treated by another doctor?: No Review of Systems - Adult - REVIEW OF SYSTEMS - ADULT Constitutional: reports: no symptoms reported Eyes: reports: no symptoms reported Ears, Nose, Mouth & Throat: reports: no symptoms reported Cardiovascular: reports: irregular heart rate (tachy). denies: chest pain, heart murmur Respiratory: reports: no symptoms reported Gastrointestinal: reports: diarrhea, nausea, vomiting. denies: abdominal pain Genitourinary: reports: no symptoms reported Musculoskeletal: reports: no symptoms reported Integumentary: reports: no symptoms reported Neurological: reports: no symptoms reported Psychiatric: reports: no symptoms reported Endocrine: reports: no symptoms reported Hematologic/Lymphatic: reports: no symptoms reported Allergic/Immunologic: reports: no symptoms reported All Other Systems: Reviewed and Negative Past History - Adult - PAST MEDICAL HISTORY-ADULT Review of Records: reports: Nursing Assessment Review, Medications Reviewed, Social history reviewed & non-contributory. Major Childhood Illnesses: reports: denies history Cardiovascular: reports: HTN Respiratory: reports: denies history Gastrointestinal: reports: denies history Obstetrical/Gynecological: reports: denies history Genitourinary: reports: denies history Musculoskeletal: reports: denies history Neurological: reports: denies history Endocrine/Immune: reports: Diabetes (type 1), thyroid disorder (Graves disease) Diabetes Type: Type 1 Other Conditions: reports: denies history - PRIOR SURGERIES/PROCEDURES Surgical/Procedure History: reports: BTL, , hernia repair (inguinal) - IMMUNIZATION STATUS Childhood Immunizations: See Nurse Assessment Flu Vaccine: See Nurse Assessment - FAMILY HISTORY Family History: reviewed, not pertinent - SOCIAL HISTORY Smoking: cigarettes, less than 1 pack/day Provider spent 3-5 mins advising pt. on dangers of tobacco.: Discussed manners to quit use, and f/u contacts for add'l counseling. Substance Use: marijuana Living Situation: family Physical Exam-General - PHYSICAL EXAM-ADULT Initial Vital Signs Reviewed: Yes - CONSTITUTIONAL General Appearance: appears well, alert, no apparent distress - EYES Eyes: PERRL/EOMI, pink conjunctivae - HEAD, EARS, NOSE, MOUTH & THROAT HENMT: normocephalic/atraumatic, moist mucous membranes, normal ENT inspection, TMs normal, pharynx normal - NECK Neck: non-tender, full range of motion, supple, normal inspection - RESPIRATORY Respiratory: chest non-tender, lungs clear, normal breath sounds, no pleuratic chest pain, no respiratory distress, no accessory muscle use - CARDIOVASCULAR Cardiovascular: normal peripheral pulses, no edema, no gallop, no JVD, no murmur , tachycardia - GASTROINTESTINAL (ABDOMEN) Abdominal Exam: normal bowel sounds, non tender, soft, no organomegaly, no pulsatile mass - LYMPHATIC Lymphatic: no adenopathy - MUSCULOSKELETAL Back Exam: normal inspection, no CVA tenderness, no vertebral tenderness Extremity: normal range of motion, non-tender, normal gait, normal inspection, no pedal edema, no calf tenderness, normal capillary refill, pelvis stable - SKIN Integumentary: normal color, normal turgor, warm/dry - NEUROLOGIC Neurologic: grossly normal - PSYCHIATRIC Psych/Mental Status: normal mood/affect, oriented x 3 Progress - PLAN OF CARE/RESULTS Progress/Plan/Lab Results: Vital Signs - 8 hr 10/19/16 11:34 Temperature 98.3 F Pulse Rate 140 H Respiratory Rate 20 Blood Pressure 173/100 O2 Sat by Pulse Oximetry 100 Orders Category Date Time Status ABG [RESP] Routine Lab 10/19/16 12:06 Ordered CBC WITH DIFF [HEME] Stat Lab 10/19/16 12:06 Ordered CMP [COMPREHENSIVE METABOLIC PANEL] [CHEM] Stat Lab 10/19/16 12:06 Ordered TEST-URINE [PREG] Stat Lab 10/19/16 11:[address] W/POSS RFLX CULT [URINALYSIS] Stat Lab 10/19/16 11:40 Ordered 0.9% Sodium Chloride Inj [Ns] 1,000 ml Med 10/19/16 12:06 Active IV 999 mls/hr EKG [EKG] Stat Ther 10/19/16 11:38 Ordered Result Diagrams: 10/20/16 05:20 10/21/16 09:50 - CONSULTS/PCP/HOSPITALIST Notification #1 *Consult/PCP/Hospitalist*: Dr. Reynolds Time Discussed: 16:04 Reason/Comments: Dr. Cintron consulted with Dr. Reynolds about admit of PT Consult Disposition: Admit Departure - Departure Time of Disposition Decision: 16:03 DIAGNOSIS: Hyperthyroidism Disposition: ADMITTED INPATIENT 09 Certified Medical Emergency: Emergent Condition: Stable - Critical Care Note This patient required my direct personal management.: No This chart was documented by the indicated scribe, (Kimberley Espinoza, [place]) and accurately reflects the services I performed and decisions made by me, Richie Cintron MD, as attested by the provider's signature.
== END 2016-10-21 15:45 | disposition home or self-care (01) ==
LOC: P.ED 11:15 → P.MEDSURG 16:40
PROVIDERS: ATTEND Family Medicine